=== PATIENT | female | born 1995 | race Caucasian/White ===

== ENCOUNTER 2019-07-08 22:46 | Emergency (ER) | payer OTHER ==
[2019-07-09] MEDS ORDERED: DIAZEPAM 5 MG TABLET PO ONE (00:12)
--- NOTE | 2019-07-09 00:16 | ER Document Report ---
HPI - HPI Time Seen by Provider: 07/09/19 00:00 Pain Level: 3 Context: Patient is a 23-year-old female that comes to the emergency department for chief complaint of pain to her left buttock radiating to the left side of her leg and down her left thigh. She states pain is occasionally very sharp, she states that she will intermittently feel shooting pain and tingling. She denies injury but she states symptoms did start after she received a shot of Phenergan into th e same area almost 2 weeks ago. She states she has tried ice and heat, ibuprofen, but symptoms are persisting. She is able to walk, she denies incontinence, fever, IV drug abuse. She denies and is on oral contraceptive. Only other reported medical history is endometriosis. Past Medical History - General Information source: Patient - Social History Smoking Status: Never Smoker Frequency of alcohol use: None Drug Abuse: None Lives with: Family Family History: Reviewed & Not Pertinent Patient has suicidal ideation: No Patient has homicidal ideation: No Renal/ Medical History: Reports: Other - Endometriosis - Immunizations Immunizations up to date: Yes Hx Diphtheria, Pertussis, Tetanus Vaccination: Yes Vertical Provider Document - CONSTITUTIONAL General Appearance: WD/WN, No Apparent Distress - HEENT HEENT: Atraumatic, Normocephalic - NECK Neck: Normal Inspection - RESPIRATORY Respiratory: Breath Sounds Normal, No Respiratory Distress - CARDIOVASCULAR Cardiovascular: Regular Rate, Regular Rhythm - GI/ABDOMEN Gastrointestinal: Abdomen Soft, Abdomen Non-Tender - BACK Back: negative: Normal Inspection - Exam performed with Tiffanie PCT at bedside. There is tenderness over the left lateral inferior gluteal aspect extending around to the left thigh, this is very palpable and there appears to be component of spasm. There is no induration, fluctuance, erythema, abnormal heat to the area. There is no severe tenderness. Full range of motion intact at the hip. Normal distal neurovascular exam. No saddle anesthesia. No signs of trauma. - MUSCULOSKELETAL/EXTREMETIES Musculoskeletal/Extremeties: LILIA LAZARO - NEURO Level of Consciousness: Awake, Alert, Appropriate Motor/Sensory: No Motor Deficit, No Sensory Deficit - DERM Integumentary: Warm, Dry, No Rash Course - Re-evaluation Re-evalutation: Patient has soreness over the left inferior lateral buttocks area and extending upwards and anteriorly towards the thigh. This area is worse with movement. There is no overt hematoma or soft tissue swelling, there is no erythema, induration, fluctuance, or sign of infection. Back exam is unremarkable, no neurological deficits, patient is able to ambulate. Symptoms started after initial IM injection, I suspect she had a hematoma, I suspect muscular soreness and based on the area there appears to be some component of spasm. Very low suspicion of any serious injury, no evidence of compartment syndrome or neurovascular deficit. Discussed treatment recommendations, expectations, follow-up, return precautions. Patient is understanding and agreement. - Vital Signs Vital signs: Temp Pulse Resp BP Pulse Ox 99.5 F 112 H 16 130/86 H 97 07/08/19 22:54 07/08/19 22:54 07/08/19 22:54 07/08/19 22:54 07/08/19 22:54 Discharge - Discharge Clinical Impression: Left leg pain Lower back pain Qualifiers: Chronicity: acute Back pain laterality: left Sciatica presence: without sci atica Qualified Code(s): M54.5 - Low back pain Condition: Stable Disposition: HOME, SELF-CARE Additional Instructions: Your evaluation is consistent with a resolving hematoma and a muscle spasm. This should eventually resolve, I recommend the anti-inflammatory as prescribed, the muscle relaxer especially at night, heat to the area, gentle stretches and massage. If symptoms continue follow-up with the orthopedics referral. Return if you worsen including developing swelling or redness over the area, new numbness, developing fever, or any other concerning or worsening symptoms. Prescriptions: Cyclobenzaprine HCl 1 - 2 tab PO Q8H PRN #20 tablet PRN Reason: Naproxen 500 mg PO BID PRN #14 tablet PRN Reason: Forms: Return to Work Referrals: ESEQUIEL RAO DO [ACTIVE STAFF] - Follow up in 1 week
[2019-07-09 04:22] VITALS: BP 118/76
== END 2019-07-09 00:30 | disposition home or self-care (01) ==
LOC: ER 22:46
DX: M79.652 Pain in left thigh (principal); M54.5 Low back pain; M25.552 Pain in left hip; N80.9 Endometriosis, unspecified; Z79.3 Long term (current) use of hormonal contraceptives
CPT/HCPCS: 99283

== ENCOUNTER → 2019-07-31 | Outpatient (CLI) | payer OTHER ==
--- NOTE | 2019-07-31 12:06 | RADIOLOGY REPORT (SQ) ---
EXAM DESCRIPTION: BARIUM SWALLOW ESOPHAGUS IMAGES COMPLETED DATE/TIME: 07/31/2019 9:13 am REASON FOR STUDY: (R13.10)DYSPHAGIA, UNSPECIFIED;(K21.9)GASTRO-ESOPHAGEAL REFLUX DISEASE WITH R13.10 DYSPHAGIA, UNSPECIFIED K21.9 GASTRO-ESOPHAGEAL REFLUX DISEASE WITHOUT ESOPHAGITIS K76.9 LIVER DIS EASE, UNSPECIFIED COMPARISON: None. TECHNIQUE: Under fluoroscopic guidance, patient ingested effervescent granules followed by thick and thin barium. Fluoroscopic spot images and routine radiographic images acquired and stored on PACS. 12 MM BARIUM TABLET GIVEN: Yes. No significant delay in passage. LIMITATIONS: None. FLUOROSCOPY TIME: FLUORO TIME: 1.2 minutes of fluoroscopy was used. 9 images saved to PACS. FINDINGS: NEUROMUSCULAR COORDINATION OF SWALLOW: Normal. No aspiration. ESOPHAGEAL MOTILITY: Normal peristalsis. No esophageal spasm. ESOPHAGEAL MUCOSA: Normal mucosa without masses or ulceration. GASTRO-ESOPHAGEAL JUNCTION: Tiny hiatal hernia. No reflux seen. 12 mm barium tablet passed through the esophagus and into the stomach without delay. NON-GI TRACT STRUCTURES: No significant finding. OTHER: No other significant finding. IMPRESSION: TINY HIATAL HERNIA OTHERWISE NORMAL DOUBLE CONTRAST BARIUM SWALLOW. COMMENT: Quality ID [id number]: Final reports for procedures using fluoroscopy that document radiation exp osure indices, or exposure time and number of fluorographic images (if radiation exposure indices are not available) TECHNICAL DOCUMENTATION: JOB ID: [id number] 2010 [employer]- All Rights Reserved Reading location - IP/workstation name: [id number]
== END ==
LOC: RAD 08:28
PROVIDERS: ATTEND Nurse Practitioner Family
DX: K44.9 Diaphragmatic hernia without obstruction or gangrene (principal); R13.10 Dysphagia, unspecified; K21.9 Gastro-esophageal reflux disease without esophagitis; K76.9 Liver disease, unspecified
CPT/HCPCS: 74220

== ENCOUNTER 2019-10-09 23:38 | Emergency (ER) | payer OTHER ==
--- NOTE | 2019-10-09 23:47 | ER Document Report ---
ED Medical Screen (RME) - General Stated Complaint: CHEST PAIN/ABDOMINAL PAIN Time Seen by Provider: 10/09/19 23:42 Primary Care Provider: TRISH HUGHES FNP [Primary Care Provider] - Follow up as needed Mode of Arrival: Ambulatory Information source: Patient Notes: 23-year-old female patient presents the emergency department chief complaint of abdominal pain. Patient states that she was doing a workout today with her physical therapist when she started having sharp stabbing pain behind her bellybutton. She reports that she has had a laparoscopy before and she had an incision on her bellybutton so she is concerned about this. She reports she has had some associated nausea without vomiting fever chills. She reports she has an appetite however eating makes the pain worse. She still has her appendix. Patient reports on her way here she started developing chest pain to the left side of her chest that is nonradiating. She denies any cardiac history. Tenderness to the mid abdomen with slight palpation. I have greeted and performed a rapid initial assessment of this patient. A comprehensive ED assessment and evaluation of the patient, analysis of test results and completion of the medical decision making process will be conducted by additional ED providers. I have specifically instructed the patient or family members with the patient to immediately return to any nursing staff should anything change in the patient's condition or with their chief complaint. - Related Data Allergies/Adverse Reactions: No Known Allergies Allergy (Unverified 07/08/19 23:09) Past Medical History - Immunizations Immunizations up to date: Yes Hx Diphtheria, Pertussis, Tetanus Vaccination: Yes Doctor's Discharge - Discharge Referrals: TRISH HUGHES FNP [Primary Care Provider] - Follow up as needed
[2019-10-09 23:55] VITALS: BP 129/85
--- NOTE | 2019-10-10 09:18 | EKG REPORT ---
SEVERITY:- ABNORMAL ECG - SINUS RHYTHM PROBABLE LEFT ATRIAL ABNORMALITY NONSPECIFIC T ABNORMALITIES, INFERIOR LEADS : Confirmed by: Keyonna Hagan 10-Oct-2019 09:17:47
== END 2019-10-10 01:38 | disposition left against medical advice (07) ==
LOC: ER 23:38
DX: R07.9 Chest pain, unspecified (principal); R10.9 Unspecified abdominal pain
CPT/HCPCS: 93005; 93010; 99281

== ENCOUNTER 2019-10-30 03:46 | Emergency (ER) | payer OTHER ==
[2019-10-30 06:26] LABS: ABSOLUTE BASOPHILS # (AUTO) 0.1 10^3/uL (0.0-0.2); ABSOLUTE EOSINOPHILS # (AUTO) 0.2 10^3/uL (0.0-0.6); ABSOLUTE LYMPHOCYTES (AUTO) 3.5 10^3/uL (0.5-4.7); ABSOLUTE MONOCYTES (AUTO) 0.9 10^3/uL (0.1-1.4); ABSOLUTE NEUT (AUTO) 6.5 10^3/uL (1.7-8.2); BASOPHILS % (AUTO) 0.6 % (0-2); EOSINOPHILS % (AUTO) 1.7 % (0-6); HEMATOCRIT 43.7 % (36.0-47.0); HEMOGLOBIN 14.9 g/dL (12.0-15.5); LYMPHOCYTES % (AUTO) 31.7 % (13-45); MEAN CORPUSCULAR HEMOGLOBIN 28.3 pg (27.0-33.4); MEAN CORPUSCULAR VOLUME 83 fl (80-97); MONOCYTES % (AUTO) 8.1 % (3-13); PLATELET COUNT 317 10^3/uL (150-450); RED BLOOD COUNT 5.25 10^6/uL (3.72-5.28); RED CELL DISTRIBUTION WIDTH 13.1 % (11.5-14.0); SEGMENTED NEUTROPHILS % (AUTO) 57.9 % (42-78); TOTAL CELLS COUNTED % (AUTO) 100 %; WHITE BLOOD COUNT 11.2 10^3/uL (4.0-10.5)
[2019-10-30 06:53] LABS: ALBUMIN 4.5 g/dL (3.5-5.0); ALKALINE PHOSPHATASE 149 U/L (38-126); ANION GAP 8 (5-19); ASPARTATE AMINO TRANSFERASE 23 U/L (14-36); BILIRUBIN,TOTAL 0.3 mg/dL (0.2-1.3); BLOOD UREA NITROGEN 11 mg/dL (7-20); CALCIUM 9.4 mg/dL (8.4-10.2); CARBON DIOXIDE 25 mmol/L (22-30); CHLORIDE 107 mmol/L (98-107); GLUCOSE 105 mg/dL (75-110); POTASSIUM 4.1 mmol/L (3.6-5.0); TOTAL PROTEIN 8.1 g/dL (6.3-8.2)
[2019-10-30] MEDS ORDERED: KETOROLAC TROMETHAMINE INJ/PF 30 MG/1 ML SDV IV ONE (06:57)
[2019-10-30 07:10] LABS: APPEARANCE,URINE SLIGHTLY-CLOUDY; BILIRUBIN,URINE NEGATIVE (NEGATIVE); COLOR,URINE YELLOW; GLUCOSE, URINE NEGATIVE (NEGATIVE); KETONES,URINE NEGATIVE (NEGATIVE); LEUKOCYTE ESTERASE,URINE NEGATIVE (NEGATIVE); NITRITE,URINE NEGATIVE (NEGATIVE); PROTEIN,URINE NEGATIVE (NEGATIVE); URINE SPECIFIC GRAVITY 1.026; UROBILINOGEN,URINE NEGATIVE mg/dL (<2.0)
--- NOTE | 2019-10-30 08:24 | ER Document Report ---
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 Patient was found to have a hepatic adenoma in March 2018. She had a liver MRI done at [facility] this past Monday but "does not get the results until November". She reports that eating, chugging a drink causes pain almost immediately, and bending over exacerbates her pain. She reports that a hot shower or heating pad relieves her pain somewhat. Patient states that the "stabbing pain is now more frequent", she feels like she "cannot get a full breath", and she now complains of generalized body aches. Patient mentions that her white blood cell count and alkaline phosphatase are always elevated on lab work. - Related Data Allergies/Adverse Reactions: acetaminophen [From Tylenol] Adverse Reaction (Verified 10/30/19 06:17) ibuprofen Adverse Reaction (Verified 10/30/19 06:18) Home Medications: lexapro, wellbutrin Past Medical History - General Information source: Patient - Social History Smoking Status: Former Smoker - quit in Mar 2018 Cigarette use (# per day): No Frequency of alcohol use: None Drug Abuse: None Lives with: Family Family History: Reviewed & Not Pertinent GI Medical History: Reports: Other - Hepatic adenoma Past Surgical History: Reports: Hx Orthopedic Surgery - Left ankle ligament repair, Hx Tonsillectomy, Other - Exploratory laparoscopy for endometriosis - Immunizations Immunizations up to date: Yes Hx Diphtheria, Pertussis, Tetanus Vaccination: Yes Review of Systems - Review of Systems Constitutional: No symptoms reported EENT: No symptoms reported Cardiovascular: No symptoms reported Respiratory: See HPI, Other - "feel like i cant get a full breath" Gastrointestinal: See HPI, Abdominal pain Genitourinary: No symptoms reported Female Genitourinary: No symptoms reported Musculoskeletal: See HPI, Joint pain, Muscle pain Skin: No symptoms reported Hematologic/Lymphatic: No symptoms reported Neurological/Psychological: No symptoms reported -: Yes All other systems reviewed and negative Physical Exam - Vital signs Vitals: Temp Pulse Resp BP Pulse Ox 98.3 F 79 18 131/91 H 100 10/30/19 06:05 10/30/19 06:05 10/30/19 06:05 10/30/19 06:05 10/30/19 06:05 - Notes Notes: Physical Exam: General: Alert, appears well. HEENT: Normocephalic. Atraumatic. PERRL. Extraocular movements intact. Oropharynx clear. Neck: Supple. Non-tender. Respiratory: No respiratory distress. Clear and equal breath sounds bilaterally. Cardiovascular: Regular rate and rhythm. Abdominal: Obese. Exquisite RUQ, RLQ, and Mid abdominal tenderness with palpation. No distension. Normal Bowel Sounds. Back: No gross abnormalities. Extremities: Moves all four extremities. Upper extremities: Normal inspection. Normal ROM. Lower extremities: Normal inspection. No edema. Normal ROM. Neurological: Normal cognition. AAOx4. Normal speech. Psychological: Normal affect. Normal Mood. Skin: Warm. Dry. Normal color. Course - Re-evaluation Re-evalutation: 10/30/19 06:40 I spoke with 1 of the emergency room doctors at the [facility] to find out about the MRI. Found the patient has been followed closely by mental health for quite some time. She has upcoming mental health appointments in about 2 weeks. She has a GI appointment on 11/19/2019. She has an MRI diagnosed hepatic adenoma which has been stable since March based on MRI done on 10/25/2019. Her white blood cell counts have been unremarkable with 1 as high as 14,500 with normal differential, her alkaline phosphatase is been slightly elevated at 148 and 173. She was COVID tested negative on 10/16/2019. She was seen in the emergency room on 08/24/2023 right upper quadrant abdominal pain, she was seen again in September for right lower quadrant abdominal pain. She had a CT scan and labs done that were all normal. - Vital Signs Vital signs: Temp Pulse Resp BP Pulse Ox 98.3 F 79 18 131/91 H 100 10/30/19 06:05 10/30/19 06:05 10/30/19 06:05 10/30/19 06:05 10/30/19 06:05 - Laboratory Result Diagrams: 10/30/19 06:10 10/30/19 06:10 Laboratory results interpreted by me: 10/30/19 10/30/19 06:10 06:10 WBC 11.2 H Alkaline Phosphatase 149 H - EKG Interpretation by Me EKG shows normal: Sinus rhythm, [place], Intervals, QRS Complexes. abnormal: ST-T Waves - Nonspecific inferior T abnormalities Rate: Normal - 81 Rhythm: NSR Discharge - Discharge Clinical Impression: Chronic abdominal pain, Hepatic adenoma Condition: Stable Disposition: HOME, SELF-CARE Additional Instructions: Abdominal Pain There are many causes of abdominal pain. Pain can mean a serious problem requiring surgery (such as appendicitis). It can also be an innocent problem that goes away on its own (such as a viral infection). Often, time must pass to determine the cause of pain. The physician does not feel that hospitalization is necessary, at present. Things may change within the next 24 hours. Call the doctor or come back for re- examination if any problems occur, such as: (1) Pain that becomes more severe, steady, or becomes concentrated in one specific area. Also, pain that is more severe with movement or coughing. (2) Vomiting that persists or becomes more frequent. (3) Blood in the vomitus, urine, or bowel movements. Blood in the stool may have a tarry or black appearance. (4) Shaking chills or fever greater than 100 degrees F. (5) The abdomen becomes more distended or swollen. (6) Bowel movements cease. (7) Failure to improve as expected. I contacted the [facility] to get the results of your MRI and recent lab work. The MRI showed the hepatic adenoma which is unchanged since March of this year. A CT scan of your abdomen and pelvis done in the emergency room last month was normal. Your white blood cell counts have been at the upper limits of normal to slightly above the upper limit of normal, but have not shown a white cell differential pattern that would suggest an infectious process. Your alkaline phosphatase levels have been just slightly above the normal range and your other liver enzymes are unremarkable. You should keep your appointments with your doctors at the [facility]. You should follow-up with your [facility], or branch clinic for management of your chronic abdominal pain. Referrals: TRISH HUGHES FNP [Primary Care Provider] - Follow up as needed I personally performed the services described in the documentation, reviewed and edited the documentation which was dictated to the scribe in my presence, and it accurately records my words and actions.
[2019-10-30 09:23] VITALS: BP 113/80
--- NOTE | 2019-11-01 16:32 | EKG REPORT ---
SEVERITY:- ABNORMAL ECG - SINUS RHYTHM NONSPECIFIC T ABNORMALITIES, INFERIOR LEADS : Confirmed by: Piero Rubin MD 01-Nov-2019 16:30:58
== END 2019-10-30 09:15 | disposition home or self-care (01) ==
LOC: ER 03:46
DX: G89.29 Other chronic pain (principal); R10.11 Right upper quadrant pain; D13.4 Benign neoplasm of liver; R10.811 Right upper quadrant abdominal tenderness; R10.813 Right lower quadrant abdominal tenderness; R10.819 Abdominal tenderness, unspecified site; R06.02 Shortness of breath; M25.50 Pain in unspecified joint; M79.10 Myalgia, unspecified site; R94.31 Abnormal electrocardiogram [ECG] [EKG]; Z79.899 Other long term (current) drug therapy; Z87.891 Personal history of nicotine dependence
CPT/HCPCS: 93005; 99284; 96374; 36415; 83690; 85025; 80053; 81001; 93010; J1885